=== PATIENT | female | born 1945 | race Hispanic/Latino ===

== ENCOUNTER → 2018-03-22 | Day surgery (SDC) | payer OTHER ==
[2018-03-15 10:52] LABS: BASOPHILS # (AUTO) 0.1 (0.0-0.1); EOSINOPHILS # (AUTO) 0.2 (0.0-0.4); EOSINOPHILS % 3.2 % (0.0-6.0); HEMATOCRIT 38.4 % (34.2-44.1); LYMPHOCYTES # (AUTO) 1.9 (1.0-3.2); LYMPHOCYTES % 30.6 % (18.0-39.1); MEAN CORPUSCULAR HEMOGLOBIN 30.7 pg (28-32); MEAN CORPUSCULAR HGB CONC 33.9 g/dL (31-35); MEAN CORPUSCULAR VOLUME 90.6 fL (81-99); MONOCYTES # (AUTO) 0.4 (0.2-0.8); MONOCYTES % 5.9 % (4.4-11.3); NEUTROPHILS # (AUTO) 3.7 (2.1-6.9); PLATELET COUNT 259 x10e3/uL (140-360); RED BLOOD COUNT 4.24 x10e6/uL (3.6-5.1); RED CELL DISTRIBUTION WIDTH 13.5 % (11.7-14.4)
[2018-03-15 11:17] LABS: ANION GAP 15.2 mmol/L (8-16); BLOOD UREA NITROGEN 15 mg/dL (7-26); BUN/CREATININE RATIO 19 (6-25); CALCIUM 9.9 mg/dL (8.4-10.2); CARBON DIOXIDE 27 mmol/L (22-29); CHLORIDE 102 mmol/L (98-107); EST GLOMERULAR FILTRATION RATE > 60 ML/MIN (60-); GLUCOSE 95 mg/dL (74-118); POTASSIUM 4.2 mmol/L (3.5-5.1); SODIUM 140 mmol/L (136-145)
--- NOTE | 2018-03-15 11:36 | Diagnostic Imaging Report ---
EXAMINATION: PA and lateral views of the chest. COMPARISON: 08/02/2015 CLINICAL HISTORY: Preop shoulder surgery DISCUSSION: Lungs remain well-inflated and without focal consolidation, pleural effusion, or pneumothorax. Stable cardiomediastinal contour with mild convexity of the right mediastinum, likely related to tortuosity of the ascending thoracic aorta. No overt pulmonary edema. No acute osseous abnormality. IMPRESSION: No acute cardiopulmonary abnormality or significant interval change relative to 08/02/2015. Signed by: Dr. Arash Mcconnell M.D. on 03/15/2018 11:33 AM
[~2018-03-22] MED LIST: BUPIVACAINE 0.25%/EPI 30ML SDV INJ ONE; CALCIUM; COQ-1030 MG; DEXAMETHASONE SOD PHOS INJ 4 MG/ML VIAL ONE; EPHEDRINE SULFATE INJ 50 MG/10 ML SYR ONE; HAIR, SKIN & N1 EACH; LIDOCAINE HCL 2% LOCAL INJ 5 ML SDV VIAL INJ ONE; MAGNESIUM; METOPROLOL SUC100 MG PO; MIDAZOLAM HCL 2 MG/2 ML VIAL ONE; MULTI-VITAMIN1 EACH; ONDANSETRON HCL INJ 2 MG/ML VIAL ONE; PROPOFOL IV EMULSION 10 MG/ML 20 ML VIAL ONE; SEVOFLURANE INHAL SOLN 250 ML PEN BTL ONE; SYNTHROID100 MCG PO; TRIAMTERENE-HC1 EAC1 PO; VITAMIN B
--- OUTSIDE RECORDS SUMMARY | 2018-03-22 10:14 | XMS REPORT | Continuity of Care Document ---
Author Author [facility] Organization [facility] Address Unknown Phone Unavailable Care Team Providers Care Machine Operator Slitter Technician Name Role Phone MD Raine, Lavonne WARREN Unavailable Insurance Providers Payer name Policy type / Coverage type Policy ID Covered republican ID Policy [employer] [facility] (MEDICARE REPL Encounters Encounter Performer Location Date Lab Report Lavonne Ni MD [facility] Oct 27, 2014 Problems Problem Effective Dates Problem Status BODY MASS INDEX 34.0-34.9, ADULT Jul 24, 2014 Active PREVENTIVE HEALTH CARE Jul 24, 2014 Active HYPERTENSION Jul 24, 2014 Active SLEEP APNEA Jul 24, 2014 Active OSTEOARTHRITIS, KNEE Jul 24, 2014 Active OTHER SCREENING MAMMOGRAM Jul 24, 2014 Active SCREENING FOR COLON CANCER Jul 24, 2014 Active MENOPAUSE Jul 24, 2014 Active HYPOTHYROIDISM Jul 24, 2014 Active VISUAL CHANGES Jul 24, 2014 Active SCREENING FOR GLAUCOMA Jul 24, 2014 Active Procedures Date Description Comments Jul 24, 2014 smoking status Never smoker Medications Medication Instructions Start Date Status METOPROLOL SUCCINATE ER 100 MG [id number] take one tablet by mouth daily Jul 24, 2014 Active TRIAMTERENE-HCTZ 37.5-25 MG TABS take one tablet by mouth daily Jul 27, 2014 Active SYNTHROID 100 MCG TABS Take one tablet by mouth once a day 30 minutes before breakfast Jul 24, 2014 Active Vital Signs Date Description Test Result Jul 24, 2014 weight E&M - 3141-9 WEIGHT 191.50 lb Jul 24, 2014 respiratory rate E&M - 9279-1 RESP RATE 16 /min Jul 24, 2014 height E&M - 8302-2 HEIGHT 63 in Jul 24, 2014 temperature E&M TEMPERATURE 98.1 deg f Jul 24, 2014 blood pressure, systolic - 8480-6 BP SYSTOLIC 116 mm Hg Jul 24, 2014 blood pressure, diastolic - 8462-4 BP DIASTOLIC 67 mm Hg Jul 24, 2014 pulse rate E&M - 8867-4 PULSE RATE 56 /min Results Date Description Test Name Value Reference Interpretation Status Jul 27, 2014 hemoglobin, blood HGB 12.9 g/dL 12.0-16.0 Jul 27, 2014 hematocrit, blood HCT 38.1 % 36.0-48.0 Jul 27, 2014 platelet count PLATELETS 255 K/CMM /mm3 133-450 Jul 27, 2014 hemoglobin, blood HGB 12.9 g/dL 12.0-16.0 Jul 27, 2014 hematocrit, blood HCT 38.1 % 36.0-48.0 Jul 27, 2014 platelet count PLATELETS 255 K/CMM /mm3 133-450 Jul 27, 2014 thyroid stimulating hormone, serum TSH 0.007 uIU/mL 0.360-3.740 Low Jul 27, 2014 cholesterol, serum CHOLESTEROL 179 mg/dl <=199 Jul 27, 2014 triglyceride, serum, fasting TRIGLYCERIDE 121 mg/dl <=149 Jul 27, 2014 HDL cholesterol, serum HDL 47 mg/dl >=61 Low Jul 27, 2014 LDL cholesterol, serum LDL 108 mg/dl <=99 High Jul 27, 2014 sodium, serum SODIUM 137 MEQ/L mmol/L 135-145 Jul 27, 2014 potassium, serum POTASSIUM 3.5 MEQ/L mmol/L 3.5-5.1 Jul 27, 2014 creatinine, serum CREATININE 0.8 mg/dL 0.5-1.4 Jul 27, 2014 urea nitrogen, blood BUN 12 mg/dL 7-22 Jul 27, 2014 urea nitrogen/creatinine ratio, serum BUN/CREAT 15 null 6-25 Jul 27, 2014 albumin, serum ALBUMIN 4.0 g/dL 3.5-5.0 Jul 27, 2014 calcium, serum CALCIUM 9.6 mg/dL 8.5-10.5 Jul 27, 2014 alanine aminotransferase (SGPT), serum SGPT (ALT) 22 U/L 0-65 Jul 27, 2014 aspartate aminotransferase (SGOT), serum SGOT (AST) 20 U/L 0-37 Jul 27, 2014 alkaline phosphatase, serum ALK PHOS 87 U/L 39-136 Oct 27, 2014 thyroid stimulating hormone, serum TSH 0.117 uIU/mL 0.360-3.740 Low Jul 27, 2014 thyroid stimulating hormone, serum TSH 0.007 uIU/mL 0.360-3.740 Low Jul 27, 2014 cholesterol, serum CHOLESTEROL 179 mg/dl <=199 Jul 27, 2014 triglyceride, serum, fasting TRIGLYCERIDE 121 mg/dl <=149 Jul 27, 2014 HDL cholesterol, serum HDL 47 mg/dl >=61 Low Jul 27, 2014 LDL cholesterol, serum LDL 108 mg/dl <=99 High Jul 27, 2014 sodium, serum SODIUM 137 MEQ/L mmol/L 135-145 Jul 27, 2014 potassium, serum POTASSIUM 3.5 MEQ/L mmol/L 3.5-5.1 Jul 27, 2014 creatinine, serum CREATININE 0.8 mg/dL 0.5-1.4 Jul 27, 2014 urea nitrogen, blood BUN 12 mg/dL 7-22 Jul 27, 2014 urea nitrogen/creatinine ratio, serum BUN/CREAT 15 null 6-25 Jul 27, 2014 albumin, serum ALBUMIN 4.0 g/dL 3.5-5.0 Jul 27, 2014 calcium, serum CALCIUM 9.6 mg/dL 8.5-10.5 Jul 27, 2014 alanine aminotransferase (SGPT), serum SGPT (ALT) 22 U/L 0-65 Jul 27, 2014 aspartate aminotransferase (SGOT), serum SGOT (AST) 20 U/L 0-37 Jul 27, 2014 alkaline phosphatase, serum ALK PHOS 87 U/L 39-136 Jul 27, 2014 thyroxine, serum, free T4, FREE 1.70 ng/dl 0.76-1.46 High Oct 27, 2014 thyroid stimulating hormone, serum TSH 0.117 uIU/mL 0.360-3.740 Low Oct 27, 2014 thyroxine, serum, free T4, FREE 1.31 ng/dl 0.76-1.46
--- OUTSIDE RECORDS SUMMARY | 2018-03-22 10:14 | XMS REPORT | Continuity of Care Document ---
Author Author [facility] Organization [facility] Address Unknown Phone Unavailable Care Team Providers Care Paint Trimmer Pipe Bowls Name Role Phone MD Raine, Lavonne WARREN Unavailable Insurance Providers Payer name Policy type / Coverage type Policy ID Covered democrat ID Policy [employer] [facility] Encounters Encounter Performer Location Date Lab Report Lavonne Ni MD [facility] Jul 27, 2014 Problems Problem Effective Dates Problem [...] Date Status METOPROLOL SUCCINATE ER 100 MG [id number] take one tablet by mouth daily Jul 24, 2014 Active TRIAMTERENE-HCTZ 37.5-25 MG TABS take one tablet by mouth daily Jul 27, 2014 Active SYNTHROID 112 MCG TABS Take one tablet by mouth [...] PHOS 87 U/L 39-136 Jul 27, 2014 thyroid stimulating hormone, serum [...] 2014 urea nitrogen, blood BUN 12 mg/dL 7-Jul 27, 2014 urea nitrogen/creatinine ratio, serum BUN/CREAT [...]
--- OUTSIDE RECORDS SUMMARY | 2018-03-22 10:14 | XMS REPORT | Continuity of Care Document ---
Author Author [facility] Organization [facility] Address Unknown Phone Unavailable Care Team Providers Care Kindergarten Aide Name Role Phone MD Raine, Lavonne WARREN Unavailable Insurance Providers Payer name Policy type / Coverage type Policy ID Covered constitution party ID Policy [employer] [facility] Encounters Encounter Performer Location Date Lab Report Lavonne Ni MD [facility] Nov 05, 2014 Problems Problem Effective Dates Problem Status [...] Date Status METOPROLOL SUCCINATE ER 100 MG [id number] take one tablet by mouth daily Jul [...] serum, free T4, FREE 1.31 ng/dl 0.76-1.46 Nov 03, 2014 occult blood, stool (E&M) HEMOCCULT Negative null Negative Nov 04, 2014 occult blood, stool (E&M) HEMOCCULT Negative null Negative Nov 05, 2014 occult blood, stool (E&M) HEMOCCULT Negative null Negative
--- OUTSIDE RECORDS SUMMARY | 2018-03-22 10:14 | XMS REPORT | Continuity of Care Document ---
Author Author [facility] Organization [facility] Address Unknown Phone Unavailable Care Team Providers Care Appeals And Generalist Clerk Name Role Phone MD Raine, Lavonne WARREN Unavailable Insurance Providers Payer name Policy type / Coverage type Policy ID Covered republican ID Policy [employer] [facility] Encounters Encounter Performer Location Date Office Visit Lavonne Ni MD [facility] Jul 24, 2014 Problems Problem Effective Dates Problem Status [...] smoker Medications Medication Instructions Start Date Status SYNTHROID 137 MCG TABS take one tablet by mouth daily Jul 24, 2014 Active METOPROLOL SUCCINATE ER 100 MG [id number] take one tablet by mouth daily Jul 24, 2014 Active Vital Signs Date [...]
--- OUTSIDE RECORDS SUMMARY | 2018-03-22 10:14 | XMS REPORT | Continuity of Care Document ---
Author Author [facility] Interface Address Unknown Phone Unavailable Problems Problem Status Onset Date Classification Date Reported Comments Source DX: ABNORMAL MAMMOGRAM Active 12/06/2017 [facility] N63 Active 01/10/2017 [facility] DX: M81.0=AGE-RELATED OSTEOPOROSIS WITHO Active 12/21/2016 [facility] M75.112 - INCOMPLETE ROTATR-CUFF TEAR/RU Active 07/01/2015 [facility] BODY MASS INDEX 34.0-34.9, ADULT Active 07/24/2014 Condition 11/05/2014 [facility] PREVENTIVE HEALTH CARE Active 07/24/2014 Condition 11/05/2014 [facility] HYPERTENSION Active 07/24/2014 Condition 11/05/2014 [facility] SLEEP APNEA Active 07/24/2014 Condition 11/05/2014 [facility] OSTEOARTHRITIS, KNEE Active 07/24/2014 Condition 11/05/2014 [facility] OTHER SCREENING MAMMOGRAM Active 07/24/2014 Condition 11/05/2014 [facility] SCREENING FOR COLON CANCER Active 07/24/2014 Condition 11/05/2014 [facility] MENOPAUSE Active 07/24/2014 Condition 11/05/2014 [facility] HYPOTHYROIDISM Active 07/24/2014 Condition 11/05/2014 [facility] VISUAL CHANGES Active 07/24/2014 Condition 11/05/2014 [facility] SCREENING FOR GLAUCOMA Active 07/24/2014 Condition 11/05/2014 [facility] Disorder of vision<sup>1</sup> Active 07/24/2014 Problem 12/07/2017 Data migrated from [email or web address] on 12/02/14. [facility]<sup>2</sup> Active 07/24/2014 Problem 12/07/2017 Data migrated from [email or web address] on 12/02/14. [facility] Osteoarthritis of knee<sup>3</sup> Active 07/24/2014 Problem 12/07/2017 Data migrated from [email or web address] on 12/02/14. [facility], [facility] [place] Sleep apnea<sup>4</sup> Active 07/24/2014 Problem 12/07/2017 Data migrated from [facility] on 12/02/14. [facility], [facility] [place] Benign hypertension Active Problem 12/07/2017 [facility], [facility] [place] Boil Active Problem 09/12/2017 [facility], [facility] [place] Breast lump or mass Active Problem 09/12/2017 [facility] Obesity Active Problem 12/07/2017 [facility], [facility] [place] Sensory peripheral neuropathy Active Problem 12/07/2017 [facility], [facility] [place] History of prediabetes Active Problem 01/21/2017 [facility] [place] Osteopenia Active Problem 07/05/2015 [facility] [place] UNSPECIFIED LUMP IN BREAST Active [facility] ENCNTR SCREEN MAMMOGRAM FOR MALIGNANT NE Active [facility] AGE-RELATED OSTEOPOROSIS W/O CURRENT PAT Active [facility] Medications Medication Details Route Status Patient Instructions Ordering Provider Order Date Source Levothyroxine Sodium 0.112 MG Oral Tablet [Synthroid] 112 microgram=1 tab, PO, Daily, # 90 tab, 1 Refill(s), Pharmacy: [facility] Active 12/06/2017 [facility] Metoprolol Succinate ER 100 mg oral tablet, extended release See Instructions, TAKE 1 TABLET DAILY, # 90 tab, 1 Refill(s), Pharmacy: [facility] Active 12/04/2017 [facility] Hydrochlorothiazide 25 MG / Triamterene 37.5 MG Oral Tablet See Instructions, TAKE 1 TABLET DAILY, # 90 tab, 1 Refill(s), Pharmacy: [facility] Active 12/04/2017 [facility] Metoprolol Succinate ER 100 mg oral tablet, extended release See Instructions, TAKE 1 TABLET DAILY, # 90 tab, 1 Refill(s), [id number] No Longer Active 06/05/2017 [facility] Hydrochlorothiazide 25 MG / Triamterene 37.5 MG Oral Tablet See Instructions, TAKE 1 TABLET DAILY, # 90 tab, 1 Refill(s), Pharmacy: [id number] No Longer Active 06/05/2017 [facility] Levothyroxine Sodium 0.112 MG Oral Tablet [Synthroid] 112 microgram=1 tab, PO, Daily, # 90 tab, 0 Refill(s), other Active 06/05/2017 [facility] TRIAMTERENE-HCTZ 37.5-25 MG TABS take one tablet by mouth daily Active 07/27/2014 [facility] SYNTHROID 137 MCG TABS take one tablet by mouth daily Active 07/24/2014 [facility] METOPROLOL SUCCINATE ER 100 MG [id number] take one tablet by mouth daily Active 07/24/2014 [facility] SYNTHROID 112 MCG TABS Take one tablet by mouth once a day 30 minutes before breakfast Active 07/24/2014 [facility] SYNTHROID 100 MCG TABS Take one tablet by mouth once a day 30 minutes before breakfast Active 07/24/2014 [facility] Allergies, Adverse Reactions, Alerts Substance Category Reaction Severity Reaction type Status Date Reported Comments Source Immunizations Immunization Date Given Site Status Last Updated Comments Source pneumococcal 13-valent vaccine<sup>1</sup> 12/04/2017 Left Deltoid completed Rao Result Comment: Patient waited in room ten mins, no allergic reaction. [facility] influenza virus vaccine, inactivated<sup>1</sup> 06/05/2017 Right Deltoid completed Rao Result Comment: Patient waited in room ten mins, no allergic reaction. [facility] influenza virus vaccine, inactivated<sup>2</sup> 06/05/2017 Right Deltoid completed Rao Result Comment: Patient waited in room ten mins, no allergic reaction. [facility] influenza virus vaccine, inactivated 02/25/2015 completed Rao [facility], [facility] [place] pneumococcal 23-valent vaccine 05/28/2013 completed Rao [facility], [facility] [place] Results Order Name Results Value Reference Range Date Interpretation Comments Source Breast Complete Uni US Breast Complete Uni US COMPLETE ULTRASOUND OF LEFT BREAST AND AXILLA: 12/19/2017 CLINICAL: /Mass abnormal mammogram, mammographic nodule/density probably benign finding - follow up. Comparison is made to exams dated: 12/19/2017 mammogram, 01/18/2017 ultrasound, 01/18/2017 mammogram, 12/25/2016 mammogram - [facility], 05/24/2016 mammogram, and 03/29/2015 mammogram. Color flow and real-time ultrasound of the left breast four quadrants and axilla regions were performed. Faust scale images of the real-time examination were reviewed. All 4 quadrants, the retroareolar region and axilla are evaluated in this exam. There is a stable small benign cyst left breast at 4 o'clock that correlates with ultrasound. There also is a stable 7 mm probably benign oval shaped mass with a circumscribed margin with posterior enhancement left breast at 12 o'clock in the middle depth that correlates with mammography and ultrasound. No abnormalities were seen sonographically in the left axilla. There has been no significant interval change. IMPRESSION: PROBABLY BENIGN The left breast mass resembles a fibroadenoma, is probably benign and follow up is recommended. A follow-up bilateral diagnostic mammogram and possible ultrasound in 12 months is recommended.(12/19/2018) This exam was interpreted at [id number] for [facility]. Faisal Koo M.D. jt/:12/19/2017 15:42:16 Grocery Manager(s): Dorinda Cortes [facility] letter sent: BI-RADS 3 Ultrasound BI-RADS: 3 Probably benign 12/19/2017 - - Read by: Faisal Koo MD Dictated Date/time: 12/19/17 15:42 Electronically Signed by: Faisal Koo MD 12/19/17 15:42 FINAL REPORT [facility] Mammo Diag JARETH incl CAD [place] Breast Mammo Diag JARETH incl CAD MA BILATERAL DIGITAL DIAGNOSTIC MAMMOGRAM WITH CAD: 12/19/2017 CLINICAL: Abnormal mammogram, mammographic nodule/density probably benign finding - follow up. Current study was evaluated with a Computer Aided Detection (CAD) system. COMPARISON:Comparison is made to exams dated: 01/18/2017 mammogram, 12/25/2016 mammogram - [facility], 05/24/2016 mammogram, 03/29/2015 mammogram, and 01/18/2017 ultrasound - [facility]. TECHNIQUE: Mammographic views were obtained using digital acquisition. [employer] Version 1.3 was utilized for computer aided detection. FINDINGS: There are scattered fibroglandular densities in both breasts. There are benign calcifications in the left breast. There is an asymmetry in the left breast at 12 o'clock anterior depth. This is demonstrated by prior ultrasound. This correlates with the prior exam. No other significant masses, calcifications, or other findings are seen in either breast. There has been no significant interval change. IMPRESSION: INCOMPLETE: NEEDS ADDITIONAL IMAGING EVALUATION RECOMMENDATION:The asymmetry in the left breast is indeterminate. An ultrasound is recommended. The results were reviewed with the patient. This exam was interpreted at [id number] for [facility]. SUMMARY: Ultrasound will be performed at this time; please see dedicated separate report. Faisal Koo M.D. jt/penrad:12/19/2017 15:38:57 Grocery Manager(s): Rita Carrera, [facility] Mammogram BI-RADS: 0 Indeterminate 12/19/2017 - - Read by: Faisal Koo MD Dictated Date/time: 12/19/17 15:38 Electronically Signed by: Faisal Koo MD 12/19/17 15:38 FINAL REPORT [facility] Breast Complete Jareth US Breast Complete Jareth US AMENDMENT: 02/07/2017 Faisal Koo M.D. The patient's prior mammograms dated 05/24/16, 03/29/15 are made available and are compared to the most recent examination. Left breast findings are more prominent than on the comparison exams. Follow up with left diagnostic mammogram and ultrasound in 6 months is again recommended. Amended BI-RADS: 3 Probably benign letter sent: Followup - BREAST COMPLETE JARETH US ULTRASOUND OF BOTH BREASTS AND BOTH AXILLA: 01/18/2017 CLINICAL: /Nodule abnormal mammogram, mammographic nodule/density. Comparison is made to exams dated: 01/18/2017 mammogram and 12/25/2016 mammogram - [facility]. Color flow and real-time ultrasound of both breasts and both axilla were performed. Faust scale images of the real-time examination were reviewed. For both breasts, all 4 quadrants, the retroareolar region and axilla are evaluated in this exam. There is a small benign cyst left breast at 4 o'clock. There also is a 7 mm probably benign oval shaped mass with a circumscribed margin with posterior enhancement left breast at 12 o'clock in the middle depth that correlates with mammography. No abnormalities were seen sonographically in the right breast or either axilla. IMPRESSION: PROBABLY BENIGN - FOLLOW-UP RECOMMENDED The left breast mass resembles a fibroadenoma, is probably benign and follow up is recommended. A follow-up left diagnostic mammogram and possible ultrasound in 6 months is recommended to demonstrate stability. Results were reviewed with the patient upon exam completion. Faisal moctezuma/:01/18/2017 11:00:04 Grocery Manager: Dorinda Cortes, [facility] This exam was dictated and interpreted by [id number] for [facility]. letter sent: Followup Ultrasound BI-RADS: 3 Probably benign 01/18/2017 - - Read by: Faisal Koo MD Dictated Date/time: 02/07/17 10:19 Electronically Signed by: Faisal Koo MD 02/07/17 10:19 FINAL REPORT - - Read by: Faisal Koo MD Dictated Date/time: 01/18/17 11:00 Electronically Signed by: Faisal Koo MD 01/18/17 11:00 FINAL REPORT [facility] Mammo Diag UNI incl CAD MA Breast Mammo Diag UNI incl CAD MA - BREAST MAMMO DIAG UNI INCL CAD MA/L UNILATERAL LEFT DIGITAL DIAGNOSTIC MAMMOGRAM WITH CAD: 01/18/2017 CLINICAL: Abnormal mammogram, mammographic nodule/density. Current study was evaluated with a Computer Aided Detection (CAD) system. Comparison is made to exam dated: 12/25/2016 mammogram - [facility]. There are scattered fibroglandular densities in the left breast. There are benign calcifications in the left breast. There is an asymmetry in the left breast at 12 o'clock anterior depth. This correlates with the prior exam. No other significant masses or calcifications are seen in the breast. IMPRESSION: INCOMPLETE: NEEDS ADDITIONAL IMAGING EVALUATION The asymmetry in the left breast is indeterminate. An ultrasound is recommended. The results were reviewed with the patient. SUMMARY: Bilateral ultrasound has been requested and will be performed at this time. Faisal moctezuma/penrad:01/18/2017 10:57:24 Grocery Manager: Alanis Ford, [facility] This exam was dictated and interpreted by [id number] for [facility]. Mammogram BI-RADS: 0 Indeterminate 01/18/2017 - - Read by: Faisal Koo MD Dictated Date/time: 01/18/17 10:57 Electronically Signed by: Faisal Koo MD 01/18/17 10:57 FINAL REPORT [facility] Knee wo contrast MRI Knee wo contrast MRI EXAMINATION: MRI of the right knee without contrast HISTORY: - S83.241A Other tear of medial meniscus, current injury, right knee, initial encounter; right knee pain; right knee medial meniscus tear; right knee tricompartmental chondrosis/osteoarthrosis COMPARISON: There are no radiographs available for review. TECHNIQUE: Multiplanar, multisequence magnetic resonance imaging of the right knee is performed with an extremity coil without contrast. FINDINGS: Menisci: --Medial: There is an incomplete radial tear near the posterior horn/root junction of the medial meniscus with partial extrusion of the meniscal body within the medial gutter. There is superimposed intrameniscal degeneration within the posterior horn. --Lateral: The anterior horn, body, and posterior horn are intact with note made of intrameniscal degeneration. Ligaments: The cruciate ligaments are intact. The medial collateral ligament and lateral collateral ligament complex are intact. Extensor mechanism: There is minimal distal patellar tendinosis. The extensor mechanism is intact. Muscles: There is normal signal intensity and muscle bulk of the musculature at the knee. Cartilage: Within the medial compartment, there is high-grade, deep partial thickness to near full-thickness chondrosis involving the weightbearing medial femoral condyle and matching medial tibial plateau, most severe along the far medial aspect of the medial tibial plateau with underlying subchondral edema. Deep partial thickness chondrosis also extends along the inferior aspect of the far posterior flexion zone of the medial femoral condyle. Within the lateral compartment, there is a focal area of deep partial thickness chondrosis along the posterior and medial aspect of the lateral tibial plateau with minimal partial-thickness chondrosis along the matching posterior weightbearing lateral femoral condyle. Within the patellofemoral compartment, there is partial- thickness chondrosis involving the patellar median ridge and medial patellar facet, most severe at the junction of the median ridge and medial patellar facet with a focal area of near full-thickness chondrosis. There is high-grade, deep partial thickness to near full-thickness chondrosis involving the central and medial trochlea. Bone: Again, there is a focus of subchondral edema along the medial tibial rim. There are no acute fractures. There are no suspicious bone marrow replacing lesions. Soft tissues: There is a small to moderate-sized knee effusion with tiny Cardozo's cyst. IMPRESSION: 1. Incomplete radial tear of the right knee medial meniscus near the posterior horn/root junction with partial extrusion of the meniscal body within the medial gutter. 2. Intact right knee lateral meniscus with note made of intrameniscal degeneration. 3. Moderate to severe medial, moderate patellofemoral, and mild lateral compartment, tricompartmental chondrosis of the right knee as described in detail above, including a focus of subchondral edema along the medial tibial rim. 4. Small to moderate-sized right knee effusion with tiny right knee Cardozo's cyst. 5. Intact right knee cruciate and collateral ligaments. 12/26/2016 - - Read by: Ej Patel MD Dictated Date/time: 12/26/16 15:16 Electronically Signed by: Ej Patel MD 12/26/16 15:23 FINAL REPORT [facility] Breast Mammo Scrn JARETH incl CAD MA Breast Mammo Scrn JARETH incl CAD MA AMENDMENT: 02/07/2017 Faisal Koo M.D. The patient's prior mammograms dated 05/24/16, 03/29/15 are made available and are compared to the most recent examination. No mammographic evidence of malignancy or significant interval change in the right breast. However, the described finding in the left breast is more prominent than on the comparison studies. Additional imaging and possible sonography has already been completed at this time. Please see those dedicated reports. Amended BI-RADS: 0 Indeterminate - BREAST MAMMO SCRN JARETH INCL CAD MA BILATERAL DIGITAL SCREENING MAMMOGRAM WITH CAD: 12/25/2016 CLINICAL: Routine/Screen. Current study was evaluated with a Computer Aided Detection (CAD) system. Exam is read without the benefit of comparison films. We have not yet received films from the prior facility where the patient states her prior mammograms were performed. Interpretation has been delayed secondary to this. There are scattered fibroglandular densities in both breasts. There are benign calcifications in both breasts. There also are benign vascular calcifications in the right breast. There is an asymmetry in the left breast at 12 o'clock anterior depth. No other significant masses, calcifications, or other findings are seen in either breast. IMPRESSION: INCOMPLETE: NEEDS ADDITIONAL IMAGING EVALUATION The asymmetry in the left breast is indeterminate. Left diagnostic mammogram with possible ultrasound is recommended (spot compression and lateral views). 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 This aids in establishing benignity. The patient should make additional efforts to locate her prior exams. An addendum will be made if additional films are provided. Faisal moctezuma/tati:01/05/2017 14:39:44 Grocery Manager: Kaitlynn Nelson, [facility] This exam was dictated and interpreted by [id number] for [facility]. letter sent: Additional Imaging Mammogram BI-RADS: 0 Indeterminate 12/25/2016 - - Read by: Faisal Koo MD Dictated Date/time: 02/07/17 10:17 Electronically Signed by: Faisal Koo MD 02/07/17 10:17 FINAL REPORT - - Read by: Faisal Koo MD Dictated Date/time: 01/05/17 14:39 Electronically Signed by: Faisal Koo MD 01/05/17 14:39 FINAL REPORT [facility] Bone Density Scan Bone Density Scan Patient Name: DOMINGO HICKS : 1945; Age: 71 years y/o Female MR: [id number] Study: Bone Density Scan 12/25/2016 1:08 PM CDT Ordering Physician: Yessi Palma MD Clinical Indication: - osteoporosis. Comparison: None FINDINGS: The axial lumbar bone mineral density is 117% of the expected age matched bone mass with a T-score -0.9. Axial lumbar average BMD is 0.953 g/cm2. The left femoral neck bone mineral density is 94% of the expected age matched bone mass with a T-score of -2.1. Left femoral neck BMD is 0.628 g/cm2. The total femoral BMD is 0.863 g/cm2. IMPRESSION: 1. Normal bone mineral density of the lumbar spine. 2. Normal bone mineral density of the left femur. Osteopenia of the left femoral neck. The World Health Organization has established that OSTEOPOROSIS occurs at -2.5 or more standard deviations (SD) below peak bone mass. OSTEOPENIA (low bone mass) occurs at -1.0 standard deviations to -2.5 standard deviations below peak bone mass. SL: [id number] 12/25/2016 - - Read by: Arash Warner MD Dictated Date/time: 12/26/16 08:02 Electronically Signed by: Arash Warner MD 12/26/16 08:03 FINAL REPORT [facility] Shoulder wo contrast MRI Shoulder wo contrast MRI EXAM: MRI of the left shoulder without contrast. HISTORY: M75.112 Incomplete rotator cuff tear or rupture of left shoulder, not specified as traumatic, M19.012 Primary osteoarthritis, left shoulder COMPARISON: None. TECHNIQUE: Multiplanar, multisequence MRI of the left shoulder without contrast. FINDINGS: Rotator cuff: There is a large full-thickness tear of the distal supraspinatus tendon measuring 2 cm AP with up to 1.9 cm retraction of the torn fibers. There is also mild to moderate infraspinatus tendinosis with a small partial-thickness interstitial and possibly bursal surface tear distally with trace fluid dissecting along the infraspinatus myotendinous junction. The subscapularis and teres minor tendons are intact. The rotator cuff muscles are normal in bulk. Biceps tendon: The intra-articular and extra-articular portions of the long head biceps tendon are intact. There is no subluxation of the long head biceps tendon. Glenohumeral joint: There is no labral tear. There is a suspected high attaching anterior band of the inferior glenohumeral ligament with attenuation of the anterior superior labrum. No chondral defect is seen along the glenoid or humeral head. The glenohumeral joint capsule is intact. There is no evidence of adhesive capsulitis. There is a small glenohumeral joint effusion with mild synovitis. Mild fluid dissects into the subacromial/subdeltoid bursa through the rotator cuff tear. Acromioclavicular joint: There is moderate to advanced acromioclavicular joint arthrosis. The acromion is type II in morphology. The coracoclavicular ligament is intact. IMPRESSION: 1. Large full-thickness tear of the distal supraspinatus tendon measuring 2 cm AP with up to 1.9 cm retraction of the torn fibers. There is also mild to moderate infraspinatus tendinosis with a small partial-thickness interstitial and possibly bursal surface tear distally with trace fluid dissecting along the infraspinatus myotendinous junction. The rotator cuff muscles are normal in bulk. 2. No labral tear. There is a suspected high attaching anterior band of the inferior glenohumeral ligament with attenuation of the anterior superior labrum. 3. Small glenohumeral joint effusion with mild synovitis. Mild fluid dissects into the subacromial/subdeltoid bursa through the rotator cuff tear. 4. Moderate to advanced acromioclavicular joint arthrosis. 07/02/2015 - - Read by: Chet Costa MD Dictated Date/time: 07/02/15 11:06 Electronically Signed by: Chet Costa MD 07/02/15 11:11 FINAL REPORT [facility] [place] [facility] HEMOCCULT Negative 11/05/2014 [facility] HEMOCCULT Negative 11/04/2014 [facility] Chemistry HEMOCCULT Negative 11/03/2014 [facility] Chemistry TSH 0.117 uIU/mL 0.360 - 3.740 10/27/2014 [facility] Chemistry TSH 0.117 uIU/mL 0.360 - 3.740 10/27/2014 [facility] Chemistry T4, FREE 1.31 ng/dl 0.76 - 1.46 10/27/2014 [facility] Chemistry TSH 0.007 uIU/mL 0.360 - 3.740 07/27/2014 [facility] CHOLESTEROL 179 mg/dl - 199 07/27/2014 [facility] TRIGLYCERIDE 121 mg/dl - 149 07/27/2014 [facility] HDL 47 mg/dl >=61 07/27/2014 [facility] Chemistry LDL 108 mg/dl - 99 07/27/2014 [facility] SODIUM 137 MEQ/L mmol/L 135 - 145 07/27/2014 [facility] POTASSIUM 3.5 MEQ/L mmol/L 3.5 - 5.1 07/27/2014 [facility] Chemistry CREATININE 0.8 mg/dL 0.5 - 1.4 07/27/2014 [facility] Chemistry BUN 12 mg/dL 7 - 22 07/27/2014 [facility] BUN/CREAT 15 6 - 25 07/27/2014 [facility] Chemistry ALBUMIN 4.0 g/dL 3.5 - 5.0 07/27/2014 [facility] Chemistry CALCIUM 9.6 mg/dL 8.5 - 10.5 07/27/2014 [facility] Chemistry SGPT (ALT) 22 U/L 0 - 65 07/27/2014 [facility] Chemistry SGOT (AST) 20 U/L 0 - 37 07/27/2014 [facility] Chemistry ALK PHOS 87 U/L 39 - 136 07/27/2014 [facility] Chemistry TSH 0.007 uIU/mL 0.360 - 3.740 07/27/2014 [facility] Chemistry TSH 0.007 uIU/mL 0.360 - 3.740 07/27/2014 [facility] Chemistry CHOLESTEROL 179 mg/dl - 199 07/27/2014 [facility] TRIGLYCERIDE 121 mg/dl - 149 07/27/2014 [facility] [facility] HDL 47 mg/dl >=61 07/27/2014 [facility] LDL 108 mg/dl - 99 07/27/2014 [facility] SODIUM 137 MEQ/L mmol/L 135 - 145 07/27/2014 [facility] POTASSIUM 3.5 MEQ/L mmol/L 3.5 - 5.1 07/27/2014 [facility] CREATININE 0.8 mg/dL 0.5 - 1.4 07/27/2014 [facility] BUN 12 mg/dL 7 - 22 07/27/2014 [facility] BUN/CREAT 15 6 - 25 07/27/2014 [facility] ALBUMIN 4.0 g/dL 3.5 - 5.0 07/27/2014 [facility] CALCIUM 9.6 mg/dL 8.5 - 10.5 07/27/2014 [facility] Chemistry SGPT (ALT) 22 U/L 0 - 65 07/27/2014 [facility] SGOT (AST) 20 U/L 0 - 37 07/27/2014 [facility] ALK PHOS 87 U/L 39 - 136 07/27/2014 [facility] T4, FREE 1.70 ng/dl 0.76 - 1.46 07/27/2014 [facility] Hematology HGB 12.9 g/dL 12.0 - 16.0 07/27/2014 [facility] Hematology HCT 38.1 % 36.0 - 48.0 07/27/2014 [facility] Hematology PLATELETS 255 K/CMM /mm3 133 - 450 07/27/2014 [facility] Hematology HGB 12.9 g/dL 12.0 - 16.0 07/27/2014 [facility] Hematology HCT 38.1 % 36.0 - 48.0 07/27/2014 [facility] Hematology PLATELETS 255 K/CMM /mm3 133 - 450 07/27/2014 [facility] Vital Signs Vital Sign Value Date Comments Source Weight 90.966 12/04/2017 [facility] BMI Calculated 33.37 12/04/2017 [facility] Systolic (mm Hg) 113 12/04/2017 [facility] Diastolic (mm Hg) 72 12/04/2017 [facility] Temperature Oral (F) 97.4 F 12/04/2017 [facility] Respitory Rate 16 12/04/2017 [facility] Heart Rate 64 12/04/2017 [facility] Height 165.1 cm 12/04/2017 [facility] Weight 90.455 06/05/2017 [facility] BMI Calculated 34.23 06/05/2017 [facility] Height 162.56 cm 06/05/2017 [facility] Respitory Rate 16 06/05/2017 [facility] Temperature Oral (F) 97.6 F 06/05/2017 [facility] Systolic (mm Hg) 136 06/05/2017 [facility] Diastolic (mm Hg) 77 06/05/2017 [facility] Heart Rate 61 06/05/2017 [facility] Weight 191.50 07/24/2014 [facility] Respitory Rate 16 07/24/2014 [facility] Height 63 07/24/2014 [facility] Temperature Oral (F) 98.1 F 07/24/2014 [facility] Systolic (mm Hg) 116 07/24/2014 [facility] Diastolic (mm Hg) 67 07/24/2014 [facility] Heart Rate 56 07/24/2014 [facility] Encounters Location Location Details Encounter Type Encounter Number Reason For Visit Attending Provider ADM Date DC Date Status Source [facility] Office Visit [id number] Yessi Palma MD 07/24/2014 07/24/2014 [facility] Lab Report [id number] Yessi Palma MD 07/27/2014 07/27/2014 [facility] Lab Report [id number] Yessi Palma MD 10/27/2014 10/27/2014 [facility] Lab Report [id number] Yessi Palma MD 11/05/2014 11/05/2014 [facility] Outpatient [id number] YESSI PALMA 01/22/2015 Active [facility] Outpatient [id number] YESSI LOUIE 03/15/2015 Active [facility] Outpatient [id number] JENIFFER SWANN 03/19/2015 Active [facility] Outpatient [id number] EMILY NICHOLS 06/21/2015 Active [facility] [place] Out[facility] Diag Services [id number] Maykel Connolly 07/02/2015 07/03/2015 [facility] [place] Outpatient [id number] YESSI PALMA 09/16/2015 Active [facility] Outpatient [id number] YESSI PALMA 10/21/2015 Active [facility] Outpatient [id number] YESSI PALMA 05/23/2016 Active [facility] Outpatient [id number] KI MARLEN 11/17/2016 Active [facility] Outpatient [id number] YESSI PALMA 12/05/2016 Active [facility] Outpatient [id number] YESSI PALMA 12/05/2016 Active [facility] Outpatient [id number] YESSI PALMA 12/13/2016 Active [facility] Outpatient [id number] Yessi Palma 12/25/2016 12/26/2016 [facility] [place] Out[facility] Diag Services [id number] Maykel Connolly 12/26/2016 12/27/2016 [facility] [place] [facility] Outpatient [id number] Yessi Palma 01/18/2017 01/19/2017 [facility] Outpatient [id number] YESSI PALMA 06/05/2017 Active [facility] Outpatient [id number] Yessi Palma 06/05/2017 06/06/2017 [facility] Phone Message [phone] 06/05/2017 06/07/2017 [facility] Outpatient [id number] YESSI PALMA 12/04/2017 Active [facility] Outpatient [id number] Yessi Palma 12/04/2017 12/05/2017 [facility] Procedures Procedure Code Date Perfomer Comments Source Colonoscopy<sup>1</sup> [id number] 07/12/2017 Diverticulosis, EH. Next one in [address] Deras [facility] Bone density scan<sup>2</sup> 592192890 12/25/2016 Normal (improved from osteopenia) [facility] Mammogram<sup>3, 4</sup> [id number] 12/25/2016 Left breast Further studiesleft diagnostic mammogram and possible ultrasound in 6 months is recommended to demonstrate stability. () [facility] Bone density scan<sup>1</sup> 698711315 12/25/2016 Normal (improved from osteopenia) [facility] [place] Bone density scan<sup>1</sup> [id number] 12/25/2016 Normal (improved from osteopenia) [facility] Mammogram<sup>2, 3</sup> [id number] 12/25/2016 Left breast Further studiesleft diagnostic mammogram and possible ultrasound in 6 months is recommended to demonstrate stability. () [facility] Bone density scan<sup>1</sup> 822328567 12/25/2016 Normal (improved from osteopenia) [facility] Mammogram<sup>2, 3</sup> [id number] 12/25/2016 Left breast Further studiesleft diagnostic mammogram and possible ultrasound in 6 months is recommended to demonstrate stability. () [facility] Rotator cuff repair<sup>5</sup> [id number] 08/04/2015 left arm [facility] Rotator cuff repair<sup>2</sup> 66718736 08/04/2015 left arm [facility] Rotator cuff repair<sup>4</sup> 37099232 08/04/2015 left arm [facility] Rotator cuff repair<sup>4</sup> 02111931 08/04/2015 left arm [facility] Rotator cuff repair<sup>2</sup> 72543357 08/04/2015 left arm [facility] Examination of eye 61009031 04/08/2015 [facility] Exercise stress echocardiography<sup>6</sup> 959833239 04/08/2015 Negative Oliver Protocol Mild LV diast dysfunction normal LV systolic function Ejf=65% [facility] Exercise stress echocardiography<sup>3</sup> 977065796 04/08/2015 Negative Oliver Protocol Mild LV diast dysfunction normal LV systolic function Ejf=65% [facility] [place] Exercise stress echocardiography<sup>5</sup> 779675993 04/08/2015 Negative Oliver Protocol Mild LV diast dysfunction normal LV systolic function Ejf=65% [facility] Examination of eye 27089508 04/08/2015 [facility] Exercise stress echocardiography<sup>5</sup> 080200184 04/08/2015 Negative Oliver Protocol Mild LV diast dysfunction normal LV systolic function Ejf=65% [facility] Exercise stress echocardiography<sup>3</sup> 866877028 04/08/2015 Negative Oliver Protocol Mild LV diast dysfunction normal LV systolic function Ejf=65% [facility] Bone density scan<sup>1</sup> 933053719 04/08/2015 Osteopenia [facility] [place] Exercise stress echocardiography<sup>2</sup> 756340899 04/08/2015 Negative Oliver Protocol Mild LV diast dysfunction normal LV systolic function Ejf=65% [facility] [place] Mammogram [id number] 03/29/2015 [facility] [place] Mammogram [id number] 03/29/2015 [facility] Examination of eye 95257523 11/25/2014 [facility] [place] Examination of eye 77768388 11/25/2014 [facility] Fall risk assessment 338392972 07/24/2014 [facility] [place] Colonoscopy [id number] 05/28/2012 [facility] [place] Colonoscopy [id number] 05/28/2012 [facility] Colonoscopy 26261091 05/28/2012 [facility] Miscellaneous operations<sup>7</sup> [id number] 05/28/2008 left partial knee surgery [facility] Miscellaneous operations<sup>4</sup> 170986304 05/28/2008 left partial knee surgery [facility] [place] Miscellaneous operations<sup>6</sup> 918416989 05/28/2008 left partial knee surgery [facility] Miscellaneous operations<sup>6</sup> 775625299 05/28/2008 left partial knee surgery [facility] Miscellaneous operations<sup>4</sup> 382772171 05/28/2008 left partial knee surgery [facility] Miscellaneous operations<sup>3</sup> 429483624 05/28/2008 left partial knee surgery [facility] [place] Hysterectomy<sup>8</sup> 860955753 05/28/1995 due to fibroids [facility] Hysterectomy<sup>5</sup> 598116777 05/28/1995 due to fibroids [facility] [place] Hysterectomy<sup>7</sup> [id number] 05/28/1995 due to fibroids [facility] Hysterectomy<sup>7</sup> 555276130 05/28/1995 due to fibroids [facility] Hysterectomy<sup>5</sup> 133136400 05/28/1995 due to fibroids [facility] Hysterectomy<sup>4</sup> 473742912 05/28/1995 due to fibroids [facility] [place] Thyroidectomy<sup>9</sup> 44761556 05/28/1994 due to cancer [facility] Thyroidectomy<sup>6</sup> [id number] 05/28/1994 due to cancer [facility] [place] Thyroidectomy<sup>8</sup> 97265513 05/28/1994 due to cancer [facility] Thyroidectomy<sup>8</sup> 42639155 05/28/1994 due to cancer [facility] Thyroidectomy<sup>6</sup> 39163204 05/28/1994 due to cancer [facility] Thyroidectomy<sup>5</sup> 45737466 05/28/1994 due to cancer [facility] [place]
--- OUTSIDE RECORDS SUMMARY | 2018-03-22 10:15 | XMS REPORT | Summary of Care ---
Author Author [facility] [place] Organization [facility] [place] Address Unknown Phone Unavailable Encounter YAHAIRA Perez(FIN) [id number] Date(s): 12/26/16 - 12/26/16 [facility] [place] [address] [place] [address] [phone] Discharge Disposition: Home or Self Care Attending Physician: Maykel Connolly MD Vital Signs No data available for this section Problem List Condition Effective Dates Status Health Status Informant Benign Active hypertension(Confirm ed) Disorder of vision1 07/24/14 Active Boil(Confirmed) Active History of Active prediabetes(Confirme d) Hypothyroidism(Confi 07/24/14 Active rmed)2 Obesity(Confirmed) Active Osteoarthritis of 07/24/14 Active knee(Confirmed)3 Sensory peripheral Active neuropathy(Confirmed ) Sleep 07/24/14 Active apnea(Confirmed)4 1Data migrated from [employer] on 12/02/14. 2Data migrated from [employer] on 12/02/14. 3Data migrated from [employer] on 12/02/14. 4Data migrated from [employer] on 12/02/14. Allergies, Adverse Reactions, Alerts Substance Reaction Severity Status NKDA Active Medications No data available for this section Results No data available for this section Immunizations Given and Recorded Vaccine Date Status Refusal Reason influenza virus vaccine, inactivated 02/25/15 Recorded pneumococcal 23-valent vaccine 05/28/13 Recorded Procedures Procedure Date Related Diagnosis Body Site Bone density scan1 12/25/16 Rotator cuff repair2 08/04/15 Exercise stress echocardiography3 04/08/15 Mammogram 03/29/15 Examination of eye 11/2014 Colonoscopy 2013 Miscellaneous operations4 2008 Hysterectomy5 1995 Thyroidectomy1994 1Normal (improved from osteopenia) 2left arm 3Negative Oliver Protocol Mild LV diast dysfunction normal LV systolic function Ejf=65% 4left partial knee surgery 5due to fibroids 6due to cancer Social History Social History Type Response Alcohol Past Smoking Status Former smoker; Exposure to Tobacco Smoke None; Cigarette Smoking Last 365 Days No; Reg Smoking Cessation Counseling No Assessment and Plan No data available for this section
--- OUTSIDE RECORDS SUMMARY | 2018-03-22 10:15 | XMS REPORT | Summary of Care ---
Author Author [facility] Organization [facility] Address Unknown Phone Unavailable Encounter HQ Chris(CAMILLA) [id number] Date(s): 06/05/17 - 06/05/17 [facility] [address], [address] [place] [address]- [phone] Discharge Disposition: Home or Self Care Attending Physician: Lavonne Ni MD Vital Signs Most recent to 1 oldest [Reference Range]: Height 162.56 cm (06/05/17 9:36 AM) Temperature Oral 97.6 DegF [96.4-99.1 DegF] (06/05/17 9:36 AM) Blood Pressure 136/77 mmHg [90-140/60-90 mmHg] (06/05/17 9:36 AM) Respiratory Rate 16 BRMIN [14-20 BRMIN] (06/05/17 9:36 AM) Peripheral Pulse 61 bpm Rate [60-100 bpm] (06/05/17 9:36 AM) Weight 90.455 kg (06/05/17 9:36 AM) Body Mass Index 34.23 m2 (06/05/17 9:36 AM) Problem List Condition Effective Dates Status Health Status Informant Benign Active hypertension(Confirm ed) Disorder of vision1 07/24/14 Active Boil(Confirmed) Active Hypothyroidism(Confi 07/24/14 Active rmed)2 Breast lump or Active mass(Confirmed) Obesity(Confirmed) Active Osteoarthritis of 07/24/14 Active knee(Confirmed)3 Sensory peripheral Active neuropathy(Confirmed ) Sleep 07/24/14 Active apnea(Confirmed)4 1Data migrated from [employer] on 12/02/14. 2Data migrated from [employer] on 12/02/14. 3Data migrated from [employer] on 12/02/14. 4Data migrated from [employer] on 12/02/14. Allergies, Adverse Reactions, Alerts Substance Reaction Severity Status NKDA Active Medications hydrochlorothiazide-triamterene 25 mg-37.5 mg oral tablet See Instructions, TAKE 1 TABLET DAILY, # 90 tab, 1 Refill(s), Pharmacy: [id number] Start Date: 06/05/17 Status: Ordered Metoprolol Succinate ER 100 mg oral tablet, extended release See Instructions, TAKE 1 TABLET DAILY, # 90 tab, 1 Refill(s), Pharmacy: [id number] Start Date: 06/05/17 Status: Ordered Synthroid 112 mcg (0.112 mg) oral tablet 112 microgram=1 tab, PO, Daily, # 90 tab, 0 Refill(s), other Start Date: 06/05/17 Status: Ordered Results No data available for this section Immunizations Given and Recorded Vaccine Date Status Refusal Reason influenza virus vaccine, inactivated1 06/05/17 Given influenza virus vaccine, inactivated 02/25/15 Recorded pneumococcal 23-valent vaccine 05/28/13 Recorded 1Result Comment: Patient waited in room ten mins, no allergic reaction. Procedures Procedure Date Related Diagnosis Body Site Status Bone density scan1 12/25/16 Completed Mammogram2, 3 12/25/16 Completed Rotator cuff repair4 08/04/15 Completed Examination of eye 04/08/15 Completed Exercise stress echocardiography5 04/08/15 Completed Colonoscopy 2012 Completed Miscellaneous operations2008 Completed Hysterectomy1995 Completed Thyroidectomy1994 Completed 1Normal (improved from osteopenia) 2Left breast Further studies 3left diagnostic mammogram and possible ultrasound in 6 months is recommended to demonstrate stability. () 4left arm 5Negative Oliver Protocol Mild LV diast dysfunction normal LV systolic function Ejf=65% 6left partial knee surgery 7due to fibroids 8due to cancer Social History Social History Type Response Alcohol Past Smoking Status Former smoker; Exposure to Tobacco Smoke None; Cigarette Smoking Last 365 Days No; Reg Smoking Cessation Counseling No entered on: 06/05/17 Assessment and Plan No data available for this section
--- OUTSIDE RECORDS SUMMARY | 2018-03-22 10:15 | XMS REPORT | Summary of Care ---
Author Author [facility] Organization [facility] Address Unknown Phone Unavailable Encounter YAHAIRA Perez(CAMILLA) [id number] Date(s): 12/25/16 - 12/25/16 [facility] [address] [place] [address]- Discharge Disposition: Home or Self Care Attending Physician: Lavonne Ni MD Referring Physician: Lavonne Ni MD Vital Signs No data available for [...] Colonoscopy 2013 Miscellaneous operations4 2008 Hysterectomy5 1995 Thyroidectomy6 1994 1Normal (improved from osteopenia) 2left arm 3Negative [...]
--- OUTSIDE RECORDS SUMMARY | 2018-03-22 10:15 | XMS REPORT ---
Author [facility] Address Unknown Phone Unavailable Care Team Providers Care Pharmacy Intake Technician Name Role Phone Delilah NELSON Unavailable Unavailable Problems This patient has no known problems. Allergies, Adverse Reactions, Alerts This patient has no known allergies or adverse reactions. Medications This patient has no known medications. Results Test Description Test Time Test Comments Text Results Atomic Results Result Comments CHEST 2 VIEWS 2018-03-15 11:30:00 [place] [address] Patient Name: DOMINGO HICKS MR #: [id number] : 1945 Age/Sex: 72/F Req #: [id number] Adm Physician: Ordered by: CHRISS NELSON MD Report #: [id number] Location: OR Room/Bed: Procedure: [id number] DX/CHEST 2 VIEWS Exam Date: Exam Time: REPORT STATUS: Signed EXAMINATION: PA and lateral views of the chest. COMPARISON: 08/02/2015 CLINICAL HISTORY: Preop shoulder surgery DISCUSSION: Lungs remain well-inflated and without focal consolidation, pleural effusion, or pneumothorax. Stable cardiomediastinal contour with mild convexity of the right mediastinum, likely related to tortuosity of the ascending thoracic aorta. No overt pulmonary edema. No acute osseous abnormality. IMPRESSION: No acute cardiopulmonary abnormality or significant interval change relative to 08/02/2015. Signed by: Dr. Nedra Renteria M.D. on 03/15/2018 11:33 AM Dictated By: NEDRA RENTERIA MD 113 Transcribed By: ANGIE on 03/15/181132 COPY TO: CHRISS NELSON MD
--- OUTSIDE RECORDS SUMMARY | 2018-03-22 10:15 | XMS REPORT | Summary of Care ---
Author Author [facility] Organization [facility] Address Unknown Phone Unavailable Encounter HQ Chris(FIN) [id number] Date(s): 12/04/17 - 12/04/17 [facility] [address], [address] [place] [address]- [phone] Discharge Disposition: Home or Self Care Attending Physician: Lavonne Ni MD Vital Signs Most recent to 1 oldest [Reference Range]: Height 165.1 cm (12/04/17 10:14 AM) Temperature Oral 97.4 DegF [96.4-99.1 DegF] (12/04/17 10:14 AM) Blood Pressure 113/72 mmHg [90-140/60-90 mmHg] (12/04/17 10:14 AM) Respiratory Rate 16 BRMIN [14-20 BRMIN] (12/04/17 10:14 AM) Peripheral Pulse 64 bpm Rate [60-100 bpm] (12/04/17 10:14 AM) Weight 90.966 kg (12/04/17 10:14 AM) Body Mass Index 33.37 m2 (12/04/17 10:14 AM) Problem List Condition Effective Dates Status Health Status Informant Benign Active hypertension(Confirm ed) Disorder of vision1 07/24/14 Active Hypothyroidism(Confi 07/24/14 Active rmed)2 Obesity(Confirmed) Active Osteoarthritis [...] DAILY, # 90 tab, 1 Refill(s), Pharmacy: [facility] Start Date: 12/04/17 Status: Ordered Metoprolol Succinate ER 100 mg oral tablet, extended release See Instructions, TAKE 1 TABLET DAILY, # 90 tab, 1 Refill(s), Pharmacy: [facility] Start Date: 12/04/17 Status: Ordered Synthroid 112 mcg (0.112 mg) oral tablet 112 microgram=1 tab, PO, Daily, # 90 tab, 1 Refill(s), Pharmacy: [facility] Start Date: 12/05/17 Status: Ordered Results No data available for this section Immunizations Given and Recorded Vaccine Date Status Refusal Reason pneumococcal 13-valent vaccine1 12/04/17 Given influenza virus vaccine, inactivated2 06/05/17 Given influenza virus vaccine, inactivated 02/25/15 Recorded pneumococcal 23-valent vaccine 05/28/13 Recorded 1Result Comment: Patient waited in room ten mins, no allergic reaction. 2Result Comment: Patient waited in room ten mins, no allergic reaction. Procedures Procedure Date Related Diagnosis Body Site Status Colonoscopy1 07/12/17 Completed Bone density scan2 12/25/16 Completed Mammogram3, 4 12/25/16 Completed Rotator cuff repair5 08/04/15 Completed Examination of eye 04/08/15 Completed Exercise stress echocardiography6 04/08/15 Completed Miscellaneous operations7 2008 Completed Hysterectomy1995 Completed Thyroidectomy1994 Completed 1Diverticulosis, EH. Next one in [address] Deras 2Normal (improved from osteopenia) 3Left breast Further studies 4left diagnostic mammogram and possible ultrasound in 6 months is recommended to demonstrate stability. () 5left arm 6Negative Oliver Protocol Mild LV diast dysfunction normal LV systolic function Ejf=65% 7left partial knee surgery 8due to fibroids 9due to cancer Social History Social History Type Response Alcohol Past Smoking Status Former smoker; Exposure to Tobacco Smoke None; Cigarette Smoking Last 365 Days No; Reg Smoking Cessation Counseling No entered on: 12/04/17 Assessment and Plan No data available for this section
--- OUTSIDE RECORDS SUMMARY | 2018-03-22 10:15 | XMS REPORT | Summary of Care ---
Author Author [facility] Organization [facility] Address Unknown Phone Unavailable Encounter HQ Roryr_lewis(FIN) [id number] Date(s): 06/05/17 - 06/06/17 [facility] [address], [address] [place], [place] [address]- [phone] Vital Signs No data available for this [...] Completed Exercise stress echocardiography6 04/08/15 Completed Miscellaneous operations2008 Completed Hysterectomy1995 Completed Thyroidectomy1994 Completed 1Diverticulosis, EH. [...]
--- OUTSIDE RECORDS SUMMARY | 2018-03-22 10:15 | XMS REPORT | Summary of Care ---
Author Author [facility] Organization [facility] Address Unknown Phone Unavailable Encounter YAHAIRA Perez(CAMILLA) [id number] Date(s): 01/18/17 - 01/18/17 [facility] [address] [place] [address]- Discharge Disposition: Home or Self Care Attending Physician: Lavonne Ni MD Referring Physician: Lavonne Ni MD Vital Signs No data available for this section Problem List Condition Effective Dates Status Health Status Informant Benign Active hypertension(Confirm ed) Disorder of vision1 07/24/14 Active Boil(Confirmed) Active History of Active prediabetes(Confirme d) Hypothyroidism(Confi 07/24/14 Active rmed)2 Breast lump or [...] Diagnosis Body Site Bone density scan1 12/25/16 Mammogram2, 3 12/25/16 Rotator cuff repair4 08/04/15 Examination of eye 04/08/15 Exercise stress echocardiography5 04/08/15 Colonoscopy 2013 Miscellaneous operations6 2008 Hysterectomy7 1995 Thyroidectomy1994 1Normal (improved from osteopenia) 2Left breast Further [...]
--- OUTSIDE RECORDS SUMMARY | 2018-03-22 10:15 | XMS REPORT | Summary of Care ---
Author Author [facility] Organization [facility] Address Unknown Phone Unavailable Encounter HQ Roryr_lewis(FIN) [id number] Date(s): 07/02/15 - 07/02/15 [facility] [place] [address] [place], [place] [id number] [place] [address] [phone] Discharge Disposition: Home Attending Physician: Maykel Connolly MD Vital Signs No data available for this section Problem List Condition Effective Dates Status Health Status Informant Disorder of vision1 07/24/14 Active Hypothyroidism2 07/24/14 Active Obesity(Confirmed) Active Osteoarthritis of 07/24/14 Active knee3 Osteopenia(Confirmed Active ) Sensory peripheral Active neuropathy(Confirmed ) Sleep apnea4 07/24/14 Active 1Data migrated from [employer] on 12/02/14. 2Data migrated from [employer] on 12/02/14. 3Data migrated from [employer] on 12/02/14. 4Data migrated from [employer] on 12/02/14. Allergies, Adverse Reactions, Alerts Substance Reaction Severity Status NKDA Active Medications No data available for this section Results No data available for this section Immunizations Vaccine Date Refusal Reason influenza virus vaccine, inactivated 02/25/15 pneumococcal 23-valent vaccine 05/28/13 Procedures Procedure Date Related Diagnosis Body Site Bone density scan1 04/08/15 Exercise stress echocardiography2 04/08/15 Fall risk assessment 07/24/14 Colonoscopy 2013 Miscellaneous operations3 2008 Hysterectomy4 1995 Thyroidectomy5 1994 1Osteopenia 2Negative Oliver Protocol Mild LV diast dysfunction normal LV systolic function Ejf=65% 3left partial knee surgery 4due to fibroids 5due to cancer Social History Social History Type Response Smoking Status Former smoker; Exposure to Tobacco Smoke None; Cigarette Smoking Last 365 Days No; Reg Smoking Cessation Counseling No Assessment and Plan No data available for this section
--- OUTSIDE RECORDS SUMMARY | 2018-03-22 10:15 | XMS REPORT | Summary of Care ---
Author Author [facility] Organization [facility] Address Unknown Phone Unavailable Encounter HQ Chris(CAMILLA) [id number] Date(s): 06/05/17 - 06/05/17 [facility] [address], [address] [place] [address]- [phone] Discharge Disposition: Home or Self Care Attending [...] DAILY, # 90 tab, 1 Refill(s), [facility]acy[id number] Start Date: 06/05/17 Stop Date: 07/24/17 Status: Completed Metoprolol Succinate ER 100 mg oral tablet, extended release See Instructions, TAKE 1 TABLET DAILY, # 90 tab, 1 Refill(s), [id number] Start Date: 06/05/17 Stop Date: 09/05/17 Status: Completed Synthroid 112 mcg (0.112 mg) oral tablet [...]
--- OUTSIDE RECORDS SUMMARY | 2018-03-22 10:15 | XMS REPORT | Summary of Care ---
Author Author [facility] Organization [facility] Address Unknown Phone Unavailable Encounter HQ Chris(CAMILLA) [id number] Date(s): 06/05/17 - 06/05/17 [facility] [address], [address] [place] [address]- [phone] Discharge Disposition: Home or Self Care Attending [...] DAILY, # 90 tab, 1 Refill(s), [id number] Start Date: 06/05/17 Stop Date: [...]
--- NOTE | 2018-03-22 14:24 | Operative Report ---
DATE OF PROCEDURE: March 22, 2018 PREOPERATIVE DIAGNOSIS: Cystic mass of the right shoulder. POSTOPERATIVE DIAGNOSIS: Cystic mass of the right shoulder. OPERATION PERFORMED: Resection of mass of the right posterior shoulder. ANESTHESIA: General. COMPLICATIONS: None. ESTIMATED BLOOD LOSS: Minimal. DESCRIPTION OF PROCEDURE: With the patient lying in bed in the supine position under good general anesthesia, the right posterior shoulder was prepped with Betadine solution and draped in the usual manner. The area surrounding and overlying the mass was then infiltrated with 0.25% Marcaine with epinephrine. An elliptical incision was made to include the skin on top of the mass. Flaps were then developed in all directions. The mass was totally and completely from all of the subcutaneous tissue, and totally and completely removed and sent for pathological examination. The whole area was thoroughly irrigated. Perfect hemostasis was ascertained. The subcutaneous tissue was then reapproximated with interrupted sutures of 3-0 Vicryl. The skin was closed with interrupted vertical mattress sutures of 3-0 silk. A dressing was applied. The sponge, lap and needle count was correct. Patient tolerated the procedure well and returned to the recovery room in stable condition. Job#: [id number] [place]
[2018-03-22 15:00] VITALS: BP 131/64
== END | disposition home or self-care (01) ==
LOC: OR 10:12
PROVIDERS: ATTEND Surgery
DX: L72.0 Epidermal cyst (principal); I10 Essential (primary) hypertension; G47.33 Obstructive sleep apnea (adult) (pediatric); I44.0 Atrioventricular block, first degree; Z01.810 Encounter for preprocedural cardiovascular examination; Z01.812 Encounter for preprocedural laboratory examination; Z01.818 Encounter for other preprocedural examination
CPT/HCPCS: 11402; 12031; 36415; 71046; 80048; 85025; 88304; 93005; J1100; J2001; J2250; J2405; J2704

== ENCOUNTER → 2019-10-08 | Day surgery (SDC) | payer OTHER ==
[2019-10-03 14:39] LABS: BASOPHILS # (AUTO) 0.1 (0.0-0.1); BASOPHILS % 0.7 % (0.0-1.0); EOSINOPHILS # (AUTO) 0.2 (0.0-0.4); HEMOGLOBIN 12.9 g/dL (12.0-16.0); LYMPHOCYTES # (AUTO) 2.1 (1.0-3.2); MEAN CORPUSCULAR HEMOGLOBIN 29.7 pg (28-32); MEAN CORPUSCULAR HGB CONC 33.1 g/dL (31-35); MEAN CORPUSCULAR VOLUME 89.9 fL (81-99); MONOCYTES # (AUTO) 0.5 (0.2-0.8); MONOCYTES % 5.8 % (4.4-11.3); NEUTROPHILS # (AUTO) 5.2 (2.1-6.9); NEUTROPHILS % 64.3 % (38.7-80.0); PLATELET COUNT 261 x10e3/uL (140-360); RED BLOOD COUNT 4.34 x10e6/uL (3.6-5.1); RED CELL DISTRIBUTION WIDTH 14.1 % (11.7-14.4)
[2019-10-03 15:02] LABS: ANION GAP 13.9 mmol/L (8-16); BLOOD UREA NITROGEN 13 mg/dL (7-26); BUN/CREATININE RATIO 16 (6-25); CALCIUM 10.1 mg/dL (8.4-10.2); CARBON DIOXIDE 28 mmol/L (22-29); CHLORIDE 104 mmol/L (98-107); EST GLOMERULAR FILTRATION RATE > 60 ML/MIN (60-); GLUCOSE 86 mg/dL (74-118); POTASSIUM 3.9 mmol/L (3.5-5.1); SODIUM 142 mmol/L (136-145)
--- NOTE | 2019-10-03 15:48 | Diagnostic Imaging Report ---
X-ray chest PA and lateral History: Preop Findings: Central airways unremarkable. Heart size normal. Aorta atherosclerotic and tortuous. No pleural effusion. No pneumothorax. Lung santos show a noncalcified ovoid density approximately 8.2 mm in the left midlung zone unchanged compared with the previous x-ray of 03/15/2018. Degenerative changes of the visualized thoracic spine. Upper abdomen unremarkable. Impression: No acute cardiopulmonary disease. There is a left midlung zone nodule. This should be compared with order studies. A chest CT may be performed for further evaluation. Signed by: Gabo Fernández MD on 10/03/2019 3:44 PM
[~2019-10-08] MED LIST changes: +ACETAMINOPHEN 1000 MG/100 ML IV ONE; +ASPIR 8181 MG PO; -BUPIVACAINE 0.25%/EPI 30ML SDV INJ ONE; +CEFAZOLIN SOD 1 GM/NS 50ML 100 ML IV ONE; -EPHEDRINE SULFATE INJ 50 MG/10 ML SYR ONE; +EPHEDRINE SULFATE INJ 50 MG/ML VIAL ONE; +EPINEPHRINE 1 MG/ML 30ML VIAL ONE; +FENTANYL CITRATE/PF 100MCG/2 ML INJ ONE; +GLYCOPYRROLATE INJ 0.2 MG/ML VIAL ONE; +LIDOCAINE HCL 2% LOCAL 20 ML VIAL ONE; +NEOSTIGMINE 1 MG/ML 10ML VIAL ONE; -ONDANSETRON HCL INJ 2 MG/ML VIAL ONE; +ONDANSETRON HCL INJ 2MG/ML 2ML 2 MG/ML VIAL ONE; +PHENYLEPHRINE HCL 1% 10 MG/ML VIAL ONE; +ROCURONIUM BROMIDE 10 MG/ML 5ML VIAL IV ONE; +ROPIVACAINE 0.5% 5 MG/ML 30 ML SDV ONE; +TRIAMTERENE-HCTZ1 EA PO; +VIT E PO; +ZINC SULFATE220 MG PO
--- OUTSIDE RECORDS SUMMARY | 2019-10-08 05:40 | XMS REPORT | Continuity of Care Document ---
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 Phone [employer] Unavailable Un available Problems Problem Status Onset Date Classification Date Reported Comments Source BODY MASS INDEX 34.0-34.9, ADULT Active 07/24/2014 Condition 11/05/2014 [facility] PREVENTIVE HEALTH CARE Active 07/24/2014 Condition 11/05/2014 [facility] HYPERTENSION Active 07/24/2014 Condition 11/05/2014 [facility] SLEEP APNEA Active 07/24/2014 Condition 11/05/2014 [facility] OSTEOARTHRITIS, KNEE Active 07/24/2014 Condition 11/05/2014 [facility] OTHER SCREENING MAMMOGRAM Acti ve 07/24/2014 Condition 11/05/2014 [facility] SCREENING FOR COLON CANCER Act paulo 07/24/2014 Condition 11/05/2014 [facility] MENOPAUSE Active 07/24/2014 Condition 11/05/2014 [facility] HYPOTHYROIDISM Active 07/24/2014 Condition 11/05/2014 [facility] VISUAL CHANGES Active 07/24/2014 Condition 11/05/2014 [facility] SCREENING FOR GLAUCOMA Active 07/24/2014 Condition 11/05/2014 [facility] Medications Medication Details Route Status Patient Instructions Ordering Provider Order Date Source TRIAMTERENE-HCTZ 37.5-25 MG TABS take one tablet by mouth daily Active 07/27/2014 [facility] SYNTHROID 137 MCG TABS take on e tablet by mouth daily Active 07/24/2014 [facility] METOPROLOL SUCCINATE ER 100 MG [id number] take one tablet by mouth daily Active 07/24/2014 [facility] SYNTHROID 112 MCG TABS Take on e tablet by mouth once a day 30 minutes before breakfast Active 07/24/2014 [facility] SYNTHROID 100 MCG TABS Take on e tablet by mouth once a day 30 minutes before breakfast Active 07/24/2014 [facility] Allergies, Adverse Reactions, Alerts No Known Medication Allergies Immunizations No Data Provided for This Section Results Order Name Results Value Reference Range Date Interpretation Comments Source Chemistry HEMOCCULT Negative 11/05/2014 [facility] HEMOCCULT Negative 11/04/2014 [facility] HEMOCCULT Negative 11/03/2014 [facility] TSH 0.117 0.360 - 3.740 10/27/2014 [facility] TSH 0.117 0.360 - 3.740 10/27/2014 [facility] T4, FREE 1.31 0.76 - 1.46 10/27/2014 [facility] TSH 0.007 0.360 - 3.740 07/27/2014 [facility] CHOLESTEROL 179 - 199 07/27/2014 [facility] TRIGLYCERIDE 121 - 149 07/27/2014 [facility] HDL 47 >=61 07/27/2014 [facility] LDL 108 - 99 07/27/2014 [facility] SODIUM 137 MEQ/L 135 - 145 07/27/2014 [facility] POTASSIUM 3.5 MEQ/L 3.5 - 5.1 07/27/2014 [facility] CREATININE 0.8 0.5 - 1.4 07/27/2014 [facility] BUN 12 7 - 22 07/27/2014 [facility] BUN/CREAT 15 6 - 25 07/27/2014 [facility] ALBUMIN 4.0 3.5 - 5.0 07/27/2014 [facility] CALCIUM 9.6 8.5 - 10.5 07/27/2014 [facility] SGPT (ALT) 22 0 - 65 07/27/2014 [facility] SGOT (AST) 20 0 - 37 07/27/2014 [facility] ALK PHOS 87 39 - 136 07/27/2014 [facility] TSH 0.007 0.360 - 3.740 07/27/2014 [facility] TSH 0.007 0.360 - 3.740 07/27/2014 [facility] CHOLESTEROL 179 - 199 07/27/2014 [facility] TRIGLYCERIDE 121 - 149 07/27/2014 [facility] HDL 47 >=61 07/27/2014 [facility] LDL 108 - 99 07/27/2014 [facility] SODIUM 137 MEQ/L 135 - 145 07/27/2014 [facility] POTASSIUM 3.5 MEQ/L 3.5 - 5.1 07/27/2014 [facility] CREATININE 0.8 0.5 - 1.4 07/27/2014 [facility] Chemistry BUN 12 7 - 22 07/27/2014 [facility] Chemistry BUN/CREAT 15 6 - 25 07/27/2014 [facility] Chemistry ALBUMIN 4.0 3.5 - 5.0 07/27/2014 [facility] Chemistry CALCIUM 9.6 8.5 - 10.5 07/27/2014 [facility] Chemistry SGPT (ALT) 22 0 - 65 07/27/2014 [facility] Chemistry SGOT (AST) 20 0 - 37 07/27/2014 [facility] Chemistry ALK PHOS 87 39 - 136 07/27/2014 [facility] Chemistry T4, FREE 1.70 0.76 - 1.46 07/27/2014 [facility] Hematology HGB 12.9 12.0 - 16.0 07/27/2014 [facility] Hematology HCT 38.1 36.0 - 48.0 07/27/2014 [facility] Hematology PLATELETS 255 K/CMM 133 - 450 07/27/2014 [facility] Hematology HGB 12.9 12.0 - 16.0 07/27/2014 [facility] Hematology HCT 38.1 36.0 - 48.0 07/27/2014 [facility] Hematology PLATELETS 255 K/CMM 133 - 450 07/27/2014 [facility] Pathology Reports No Data Provided for This Section Diagnostic Reports No Data Provided for This Section Consultation Notes No Data Provided for This Section Discharge Summaries No Data Provided for This Section History and Physicals No Data Provided for This Section Vital Signs Vital Sign Value Date Comments Source Weight 191.50 07/24/2014 [facility] Respitory Rate 16 07/24/2014 [facility] Height 63 0 07/24/2014 [facility] Temperature Oral (F) 98.1 F 07/24/2014 [facility] Systolic (mm Hg) 116 07/24/2014 [facility] Diastolic (mm Hg) 67 07/24/2014 [facility] Heart Rate 56 07/24/2014 [facility] Encounters Location Location Details Encounter Type Encounter Number Reason For Visit Attending Provider ADM Date DC Date Status Source [facility] Office Visit [id number] Lavonne Palma MD 07/24/2014 07/24/[address] [facility] Lab Report [id number] Lavonne Palma MD 07/27/2014 07/27/2014 [facility] Lab Report [id number] Lavonne Palma MD 10/27/2014 10/27/2014 Medical [facility] Lab Report [id number] Lavonne Palma MD 11/05/2014 11/05/2014 [facility] [id number] LAVONNE PALMA 01/22/2015 [facility] [id number] LAVONNE PALMA 03/15/2015 Active [facility] [id number] JENIFFER SWANN 03/19/2015 Active [facility] [id number] EMILY NICHOLS 06/21/2015 Active [facility] [id number] LAVONNE PALMA 09/16/2015 Active [facility] [id number] LAVONNE PALMA 10/21/2015 [facility] [id number] LAVONNE PALMA 05/23/2016 [facility] [id number] KI GEE 11/17/2016 Active [facility] [id number] LAVONNE PALMA 12/05/2016 Active [facility] [id number] LAVONNE PALMA 12/05/2016 Active [facility] [id number] LAVONNE PALMA 12/13/2016 Active [facility] [id number] LAVONNE PALMA 06/05/2017 Active [facility] [id number] LAVONNE PALMA 12/04/2017 Active [facility] [id number] LAVONNE PALMA 07/17/2018 Active [facility] [id number] Lavonne Palma 12/05/2018 [facility] Procedures No Data Provided for This Section Assessment and Plan No Data Provided for This Section Plan of Care No Data Provided for This Section Social History No Data Provided for This Section Family History No Data Provided for This Section Advance Directives No Data Provided for This Section Functional Status No Data Provided for This Section
[2019-10-08 13:00] VITALS: BP 124/65
--- NOTE | 2019-10-09 00:21 | Operative Report ---
DATE OF PROCEDURE: 10/08/2019 SURGEON: Maykel Connolly MD PREOPERATIVE DIAGNOSES: 1. Right shoulder rotator cuff tear. 2. Right shoulder osteoarthritis. POSTOPERATIVE DIAGNOSES: 1. Right shoulder massive retracted chronic rotator cuff tear. 2. Right shoulder long head of the biceps tendon tear. 3. Right shoulder synovitis. 4. Right shoulder osteoarthritis. OPERATION AND PROCEDURES PERFORMED: The patient underwent right shoulder examination under anesthesia, right shoulder arthroscopy, right shoulder arthroscopic debridement of synovitis, right shoulder marginal repair of a massive chronic rotator cuff tear, right shoulder arthroscopic subacromial decompression and acromioplasty, and right shoulder chondroplasty of the glenoid APPLICATION SUPPORT INTERN: There was no assistant paralegal. ANESTHESIA: General endotracheal intubation anesthesia as well as a regional block. IV FLUIDS: Per the anesthesia record. BLOOD LOSS: Nominal. COMPLICATIONS: None. BRIEF DISCUSSION OF THE PATIENT'S OPERATIVE PROCEDURE: Ms. Wong was taken to the operating room and placed in supine position on the operating table. Following induction of general anesthesia as well as endotracheal intubation, the patient's right upper extremity was examined under anesthesia. She was found to have full passive range of motion of the shoulder joint. There are no mechanical symptoms with range of motion of the shoulder. The upper extremity was prepped and draped in standard surgical fashion. Standard posterolateral and anterior port was created without difficulty. The scope was placed within the shoulder joint atraumatically. Examination of the glenohumeral articulation demonstrated chondromalacia of the glenoid surfaces. The scope was placed in the shoulder joint atraumatically. Examination of glenohumeral articulation demonstrated chondromalacia of the glenoid. The long head of the biceps was ruptured and not found within the shoulder joint. There was diffuse synovitis throughout the shoulder. The patient had a massive retracted rotator cuff tear. The shaver was placed in the shoulder joint and a chondroplasty of the glenoid was performed. The synovitis was also debrided at this time. The shoulder was then deflated with sterile normal saline. The scope was placed in the subacromial space and a lateral portal was created with an outside-in technique. A bursectomy was performed. The patient's rotator cuff tissue was identified. She had a complex tear of both the supraspinatus and infraspinatus tendons. The tendons were retracted beyond the level of the glenoid. A [place] was used to mobilize the rotator cuff tissues. The rotator cuff tissues were found to be thinned and there was significant fat infiltration of both the tendon and the musculature. The tendinous portion was mobilized and could be brought forward. Two suture anchors were inserted into the greater tuberosity of the humerus. A [id number] repair was initiated bringing the portion of the tendon forward and reducing the overall width of the rotator cuff injury. The suture arms from the anchor were then woven through the rotator cuff tissue. However, both suture anchors pulled out of the bone and had to be excised. A 2nd set of suture anchors were placed further distally down the greater tuberosity and the suture arms from those anchors were woven through the rotator cuff tissue. A combination of [id number] repairs as well as end-to-end repairs allowed for marginal reapproximation of the rotator cuff injury. The tissue was of poor quality. The shoulder was placed through range of motion and the repair was found to be stable. The coracoacromial ligament was then resected and an acromioplasty was performed. The shoulder was then deflated with sterile normal saline. All wounds were then closed in a multilayer fashion. Sterile dressings were applied as well as a shoulder immobilizer. The patient was then awakened and taken to the postanesthesia care unit in stable condition. MD ANN-MARIE Lowery/RIGOBERTO /[id number]
== END | disposition home or self-care (01) ==
LOC: OR 05:38
PROVIDERS: ATTEND Specialist
DX: M75.121 Complete rotator cuff tear or rupture of right shoulder, not specified as traumatic (principal); S46.111A Strain of muscle, fascia and tendon of long head of biceps, right arm, initial encounter; M19.011 Primary osteoarthritis, right shoulder; M65.9 Synovitis and tenosynovitis, unspecified; M94.211 Chondromalacia, right shoulder; I10 Essential (primary) hypertension; X58.XXXA Exposure to other specified factors, initial encounter; Z01.810 Encounter for preprocedural cardiovascular examination; Z01.812 Encounter for preprocedural laboratory examination; Z01.818 Encounter for other preprocedural examination; Z79.82 Long term (current) use of aspirin; Z68.33 Body mass index [BMI] 33.0-33.9, adult; Z96.652 Presence of left artificial knee joint
CPT/HCPCS: 29826; 29827; 36415; 71046; 80048; 85025; 87635; 93005; C1713; J0131; J0690; J1100; J2001 ×2; J2250; J2370; J2405; J2704; J2710; J2795; J3010